=== PATIENT | male | born 1975 | race Caucasian/White ===

== ENCOUNTER 2021-03-01 15:58 | Emergency (ER) | payer MEDICAID ==
[~2021-03-01] VITALS: Ht 180.3 cm; Wt 145.2 kg
[2021-03-01 16:50] VITALS: BP 171/89
== END 2021-03-01 16:50 | disposition home or self-care (01) ==
LOC: M.ERS 15:58
DX: Z99.81 Dependence on supplemental oxygen (principal); Z76.0 Encounter for issue of repeat prescription; I50.9 Heart failure, unspecified; N28.9 Disorder of kidney and ureter, unspecified; E11.40 Type 2 diabetes mellitus with diabetic neuropathy, unspecified